=== PATIENT | female | born 1960 | race Caucasian/White ===

== ENCOUNTER → 2016-04-14 | Outpatient (CLI) | payer OTHER ==
[~2016-04-14] MED LIST: ASCO500T16 PO; B-CO1CAP17 PO; Biotin PO; CALCTAB5 PO; FIBER PO; FMR25 PO; GLUC500C4 PO; PRLSR20 PO; SOLI5TAB2 PO; Vitamin D PO; Zinc PO
[2016-04-14 12:33] LABS: ALKALINE PHOSPHATASE 66 U/L (45-117); ALT/SGPT 29 U/L (12-78); AST/SGOT 14 U/L (15-37)
== END | disposition home or self-care (01) ==
LOC: C.LAB1850 10:30
PROVIDERS: ATTEND Internal Medicine Hematology & Oncology
DX: C50.111 Malignant neoplasm of central portion of right female breast (principal); M81.0 Age-related osteoporosis without current pathological fracture

== ENCOUNTER → 2016-04-14 | Outpatient (CLI) | payer OTHER ==
--- NOTE | 2016-04-14 14:07 | MAMMOGRAPHY REPORT ---
UNILATERAL LEFT DIGITAL DIAGNOSTIC MAMMOGRAM TOMOSYNTHESIS WITH CAD AND TARGETED LEFT ULTRASOUND: CLINICAL HISTORY: Six-month follow-up of left breast asymmetry. History of right breast cancer. TECHNIQUE: Breast tomosynthesis in addition to standard 2D mammography was performed. Current study was also evaluated with a Computer Aided Detection (CAD) system. Left CC and MLO and XCCL 2-D and tomosynthesis images were obtained. COMPARISON: Comparison is made to exams dated: 10/10/2015 ultrasound, 10/10/2015 mammogram, 10/07/2015 mammogram, 09/20/2014 mammogram, 09/13/2013 mammogram, and 09/15/2012 mammogram - [facility]. BREAST COMPOSITION: The tissue of the left breast is almost entirely fatty. FINDINGS: Again noted is a focal asymmetry in the left upper outer quadrant measuring approximately 3 cm. The asymmetry is stable compared to the September 2015 exam. An asymmetry is been present in thi s region on all available prior mammograms dating back to 2006, although the asymmetry appears sligh tly more prominent compared to exams prior to 2015. Om the tomosynthesis images, this has the appea renzo of fibroglandular tissue. There is a new oval partially circumscribed and partially obscured 11 mm mass seen within the left breast at approximately 3:00. Additionally, there is a newly visual ized oval circumscribed 7 mm mass seen within the left upper outer quadrant, and a lobulated circums cribed 7 mm mass seen in the left upper inner quadrant. The remainder of the left breast is stable compared to prior exams, without suspicious masses, calcifications, or areas of architectural distor tion noted. Targeted ultrasound was performed of the left breast. In the left breast at 3:00, 3 cm from the nip ple, there is an oval anechoic circumscribed 8 x 9 mm mass. This corresponds with one of the new ma mmographic masses and is consistent with a benign simple cyst. Adjacent to this in the left breast at 3:00, 4 cm from the nipple, there is an oval circumscribed anechoic mass with thin internal septa tions, measuring 10 x 6 mm, consistent with a benign cyst cluster. In the left breast at 1:00, 6 cm from the nipple, there is an oval parallel circumscribed hypoechoic mass which measures 6 x 7 x 3 mm. This likely represents a cyst also does not meet all of the sono graphic criteria for a cyst. In the left breast at 11:00, 3 cm from the nipple, there is a round an echoic circumscribed mass with a thin internal septation, measuring 6 x 5 mm. This corresponds with one of the new mammographic masses and is consistent with a benign cyst. A round circumscribed murali ign simple cyst measuring 2 mm is also seen within the left breast at 11:00, 4 cm from the nipple. A focal area of normal-appearing fibroglandular tissue is seen in the left breast at 2:00, which lik fernanda corresponds with the focal asymmetry. IMPRESSION: ACR BI-RADS CATEGORY 0: INCOMPLETE EVALUATION: NEED ADDITIONAL IMAGING EVALUATION, TAR GETED ULTRASOUND ACR BI-RADS CATEGORY 0: INCOMPLETE EVALUATION: NEED ADDITIONAL IMAGING EVALUATION 1. Focal asymmetry in the left upper outer quadrant is stable compared to the September 2015 exam, but a ppears slightly more prominent compared to exams prior to 2015. While this may represent a normal i sland of fibroglandular tissue, given the history of right breast cancer, recommend bilateral breast MRI for further evaluation. 2. New small benign cysts seen within the left breast. One hypoechoic 7 mm mass in the left breast at 1:00 is probably benign and likely represents a cyst although it does not meet all of the sonogr aphic criteria for a cyst. This can be evaluated at the time of the breast MRI. The patient has been verbally notified of the results. Approximately 10% of breast cancers are not detected with mammography. A negative mammographic repor t should not delay biopsy if a clinically suggestive mass is present. Linda Gomes M.D. ah/:04/14/2016 12:35:02 Information Security Specialist: Alice Dhaliwal, [facility] letter sent: Addl Imaging 0 BI-RADS Code: ACR BI-RADS Category 0: Incomplete Evaluation: Need Additional Imaging Evaluation Ul trasound BI-RADS: ACR BI-RADS Category 0: Incomplete Evaluation: Need Additional Imaging Evaluation
== END | disposition home or self-care (01) ==
LOC: C.MAMM 10:47
PROVIDERS: ATTEND Internal Medicine Hematology & Oncology
DX: C50.111 Malignant neoplasm of central portion of right female breast (principal); M81.0 Age-related osteoporosis without current pathological fracture; N63 Unspecified lump in breast; N60.02 Solitary cyst of left breast; R92.8 Other abnormal and inconclusive findings on diagnostic imaging of breast

== ENCOUNTER → 2016-04-22 | Outpatient (CLI) | payer OTHER ==
[~2016-04-22] MED LIST changes: +GADAVIST IV PRN
--- NOTE | 2016-04-26 13:33 | MAMMOGRAPHY REPORT ---
BREAST MRI OF BOTH BREASTS : 04/22/2016 CLINICAL HISTORY: Focal asymmetry in the left upper outer quadrant seen mammographically, as well as a possible cyst seen within the left breast at 1:00 on ultrasound. History of prior right breast c ancer status post treatment. COMPARISON: Comparison is made to exams dated: 10/10/2015 mammogram, 10/07/2015 mammogram, 09/13/2013 mammogram, 09/20/2014 mammogram, 09/15/2012 mammogram, and 09/09/2011 mammogram - . Technique: The patient was placed prone in a dedicated breast imaging coil. Precontrast axial T1-we ighted, axial T2-weighted fat saturation, and axial T1-weighted fat saturation images were obtained. After the administration of Gadavist IV contrast, sequential T1-weighted fat saturation images wer e obtained. Subtraction images were obtained of the dynamic contrast enhanced sequences, and 3-D re formations were performed. The Udex software was used for kinetic analysis. Findings: Right breast: There is minimal background parenchymal enhancement. There are expected postsurgical changes in the right central breast from prior lumpectomy. There is a round circumscribed 7 mm subd ermal mass in the right 3:00 breast, which demonstrates T2 hyperintensity and no enhancement, and is benign and likely represents an epidermal inclusion/sebaceous cyst (series 501 image 63). There ar e no suspicious enhancing masses or areas of abnormal enhancement within the right breast. Left breast: There is mild background parenchymal enhancement. There is a focal area of enhancing t issue within the left upper outer quadrant posteriorly, which measures 1.7 x 2.3 cm (series 59027 im age 59). The area demonstrates a persistent kinetic pattern. This corresponds with the focal asymm etry seen mammographically. Given the increased prominence of the asymmetry mammographically and gi aleksey the corresponding enhancement on MRI, the asymmetry is indeterminant and ultrasound-guided core needle biopsy is recommended for further evaluation, although this may represent normal fibroglandul ar tissue. A few small circumscribed T2 hyperintense, nonenhancing masses are seen scattered within the left breast, consistent with cysts. The largest cyst measures 8 mm in the left central breast. One oval 5 mm T2 hyperintense, nonenhancing mass within the enhancing tissue in the left upper out er quadrant at approximately 1:00 corresponds with the hypoechoic mass seen on ultrasound and is murali ign and consistent with a cyst (series 4 image 31). The remainder of the left breast is negative, w ithout suspicious masses or areas of abnormal enhancement present. There is no evidence of axillary adenopathy. The chest wall structures are negative. An oval circu mscribed T2 hyperintense, nonenhancing mass is seen within the anterior aspect of the liver, consist ent with a hepatic cyst (series 4 image 46). IMPRESSION: ACR BI-RADS CATEGORY 4A: LOW SUSPICION FOR MALIGNANCY 1. Focal 2.3 cm area of enhancing tissue within the left upper outer quadrant, corresponding with t he mammographic focal asymmetry. Although this may represent normal fibroglandular tissue, given th e increased prominence mammographically and given the corresponding enhancement on MRI, the asymmetr y is indeterminant. Recommend ultrasound-guided core needle biopsy for further evaluation. 2. Small benign cysts scattered within the left breast. The hypoechoic mass in left breast at 1:00 described on the prior ultrasound report is shown to represent a benign cyst on MRI. A phone call was made to the physician's office to confirm faxed results were received. Linda Gomes M.D. ah/:04/24/2016 18:02:54 Senior Statistician: nba player, letter sent: Abnormal 4/5 BI-RADS Code: ACR BI-RADS Category 4A: Low Suspicion For Malignancy
== END | disposition home or self-care (01) ==
LOC: C.MRI 13:06
PROVIDERS: ATTEND Internal Medicine Hematology & Oncology
DX: R92.8 Other abnormal and inconclusive findings on diagnostic imaging of breast (principal); N60.02 Solitary cyst of left breast

== ENCOUNTER → 2016-05-12 | Outpatient (CLI) | payer OTHER ==
[~2016-05-12] MED LIST changes: -GADAVIST IV PRN
--- NOTE | 2016-05-12 10:08 | Discharge Instructions ---
Discharge Instructions Procedure Procedure Date: May 12, 2016. Reason for visit: Left Enhancing Tissue/2ND Look Us/Pos Bx. Discharge Discharge Date: May 12, 2016. Discharge Diagnosis: status post breast biopsy Instructions Activity Recommendations: Additional Limitations (see below) Return to School/Work: no limitations Recommended Home Diet: No Limitations Provider Instructions: ACTIVITY RECOMMENDATIONS: * No lifting, pushing, pulling or exercising the affected side for three days. RETURN TO SCHOOL/WORK: * You may return to work/school after the procedure, but do not perform any strenuous activities for 24 to 48 hours. MEDICATIONS: * Tylenol (two 325 mg) every four to six hours if needed for mild pain (if not allergic to Tylenol). DIET: * Resume previous diet. SPECIAL CARE INSTRUCTIONS: * Keep biopsy site dry for 24 hours. May shower after 24 hours, but do not soak (bathe) incision. * May remove Tegaderm (plastic patch) tomorrow AFTER showering. * Leave the steri-strips on for one week. Allow the steri-strips to fall off by themselves. If not off after one week, you may remove them. You may place a Bandaid crosswise over the strips, if desired. * Apply ice 10 minutes on and 10 minutes off as needed. * Wear a bra at bedtime to sleep more comfortably for 2-3 days. * Your referring physician should have the results after approximately 5 to 7 business days. * Call for unusual bleeding, fever, drainage, etc or if you have any questions call during normal business hours or after hours call Dr Gomes, [phone]. FOLLOW UP VISIT: Follow-up with Referring Physician as scheduled. Allergies Coded Allergies: Naproxen (Unverified Allergy, Mild, HIVES, 05/06/12) Sulfa Drugs (Unverified Allergy, Mild, MOUTH SORES, 05/06/12) Latha Nails Recommendations: Call your doctor if: * Temperature above 101 degrees * Pain not relieved by pain medicine ordered * There is increased drainage or redness from any incision * You have any unanswered questions or concerns. Your Doctors Instructions noted above were prepared by provider Linda Gomes. Patient Signature Section: Patient Instructions Signature Page Katarina Ch Patient (or Guardian) Signature/Date: I have read and understand the instructions given to me by my caregivers. Caregiver/RN/Doctor Signature/Date: The above-named patient and/or guardian has received patient instructions on this date. + Original Patient Signature Page (only) stays with chart. Please make copy for patient.
--- NOTE | 2016-05-12 13:33 | MAMMOGRAPHY REPORT ---
ULTRASOUND GUIDED BIOPSY LEFT BREAST: 05/12/2016 CLINICAL HISTORY: Hyperechoic tissue in the left 1:00 breast, which correlates with the increasing f ocal asymmetry. PATIENT CONSENT: The procedure, risks and benefits were discussed with the patient and informed writ ten consent was obtained. A timeout was performed immediately prior to the procedure. PROCEDURE DESCRIPTION: With ultrasound guidance, aseptic technique, and lidocaine as the local anest hetic (1% lidocaine to anesthetize the skin and 1% lidocaine with epinephrine to anesthetize the flaco per tissues), the hyperechoic tissue in the left 1 to 2:00 breast was sampled 3 times with a 14-gaug e Achieve biopsy needle. Immediately thereafter, with ultrasound guidance, aseptic technique, and l idocaine as the local anesthetic, a metallic localizer clip was placed at the biopsy site. Direct p ressure was applied to the site immediately post procedure and hemostasis was achieved. Postprocedu re unilateral mammograms were performed to confirm placement of the clip in the expected location of the biopsied tissue; see the separate dictation for details. The patient tolerated the procedure w ithout complication. She was given wound care instructions. The specimens were sent to pathology fo r analysis. COMPARISON: Comparison is made to exams dated: 04/22/2016 breast MRI, 04/14/2016 mammogram, 10/10/2015 mammogram, 04/14/2016 ultrasound, 09/20/2014 mammogram, and 09/13/2013 mammogram - [facility]. IMPRESSION: ULTRASOUND GUIDED BIOPSY Ultrasound-guided core needle biopsy of the hyperechoic tissue in the left 1 to 2:00 breast, which c orrelates with the mammographic focal asymmetry and the enhancing tissue on MRI. A marker clip was placed. The patient will receive pathology results from her ordering provider. Linda Gomes M.D. ah/:05/12/2016 10:14:47 Histology Assistant: Cydney SALINAS(R)(Irvin), [facility]
--- NOTE | 2016-05-12 13:36 | MAMMOGRAPHY REPORT ---
UNILATERAL LEFT DIGITAL DIAGNOSTIC MAMMOGRAM: 05/12/2016 CLINICAL HISTORY: Status post ultrasound-guided biopsy of the hyperechoic tissue in the left 1 to 2: 00 breast. TECHNIQUE: Postprocedural left CC and ML views were obtained. COMPARISON: Comparison is made to exams dated: 04/22/2016 breast MRI, 04/14/2016 mammogram, 10/10/2015 mammogram, and 10/07/2015 mammogram - [facility]. BREAST COMPOSITION: The tissue of the left breast is almost entirely fatty. FINDINGS: A new biopsy marker clip is seen at the site of the biopsied hyperechoic tissue in the le ft 1 to 2:00 breast. The biopsy clip is located in the region of the mammographic focal asymmetry, indicating good correlation between the biopsied sonographic finding and the mammographic asymmetry as well as the enhancing tissue on MRI. No significant postbiopsy hematoma is seen. IMPRESSION: POST PROCEDURE IMAGING FOR MARKER PLACEMENT New biopsy marker clip status post left breast ultrasound-guided biopsy. Pathology results are pend ing. Pending benign pathology results, the patient can return to her annual screening mammogram [facility] September 2016. Approximately 10% of breast cancers are not detected with mammography. A negative mammographic repor t should not delay biopsy if a clinically suggestive mass is present. Linda Gomes M.D. ah/:05/12/2016 10:16:55 Business Editor: Cydney MAYES)(Irvin), [facility] BI-RADS Code: Post Procedure Imaging For Marker Placement
== END | disposition home or self-care (01) ==
LOC: C.MAMM 09:25
PROVIDERS: ATTEND Surgery
DX: R92.8 Other abnormal and inconclusive findings on diagnostic imaging of breast (principal)

== ENCOUNTER → 2016-10-11 | Outpatient (CLI) | payer OTHER ==
[2016-10-11 12:46] LABS: ALKALINE PHOSPHATASE 64 U/L (45-117); ALT/SGPT 38 U/L (12-78); AST/SGOT 22 U/L (15-37)
== END | disposition home or self-care (01) ==
LOC: C.LAB1850 10:43
PROVIDERS: ATTEND Internal Medicine Hematology & Oncology
DX: Z85.3 Personal history of malignant neoplasm of breast (principal); R92.8 Other abnormal and inconclusive findings on diagnostic imaging of breast; M81.0 Age-related osteoporosis without current pathological fracture

== ENCOUNTER → 2016-10-11 | Outpatient (CLI) | payer OTHER ==
--- NOTE | 2016-10-11 14:31 | MAMMOGRAPHY REPORT ---
BILATERAL DIGITAL DIAGNOSTIC MAMMOGRAM TOMOSYNTHESIS WITH CAD: 10/11/2016 CLINICAL HISTORY: History of right breast cancer status post lumpectomy. History of benign ultrasoun d-guided biopsy of the left breast April 2016 which yielded benign pathology. The patient reports no current complaints. TECHNIQUE: Breast tomosynthesis in addition to standard 2D mammography was performed. Current study was also evaluated with a Computer Aided Detection (CAD) system. Bilateral CC and MLO 2-D and tomosy nthesis images were obtained. COMPARISON: Comparison is made to exams dated: 04/14/2016 ultrasound, 04/14/2016 mammogram, 10/10/2015 mammogram, 10/07/2015 mammogram, 09/20/2014 mammogram, and 09/13/2013 mammogram - [facility]. BREAST COMPOSITION: There are scattered areas of fibroglandular density in both breasts. FINDINGS: There are no suspicious masses, calcifications, or areas of architectural distortion noted in either breast. There has been no significant interval change compared to prior exams. There are stable post surgical changes in the right central breast from prior lumpectomy, including density, a rchitectural distortion, surgical clips, and benign-appearing calcifications at the lumpectomy bed. Focal asymmetry in the left upper outer quadrant is not significantly changed, with a biopsy marker c lip seen at the anterior aspect of the asymmetry. This was recently biopsied and yielded benign path ology. Scattered circumscribed benign-appearing left breast masses are stable, with corresponding be nign cysts seen on the prior MRI. Circumscribed benign-appearing mass in the right medial breast is stable; this was previously marked with a skin marker and likely represents a sebaceous/epidermal inc lusion cyst. IMPRESSION: ACR BI-RADS CATEGORY 2: BENIGN There is no mammographic evidence of malignancy in either breast. A 1 year screening mammogram is rec ommended. The patient has been verbally notified of the results. Approximately 10% of breast cancers are not detected with mammography. A negative mammographic report should not delay biopsy if a clinically suggestive mass is present. Linda Gomes M.D. /:10/11/2016 11:33:31 Water Filter Cleaner: Alisia SALINAS(Markus)(Irvin), [facility] letter sent: Normal 1/2 BI-RADS Code: ACR BI-RADS Category 2: Benign
== END | disposition home or self-care (01) ==
LOC: C.MAMM 10:58
PROVIDERS: ATTEND Internal Medicine Hematology & Oncology
DX: Z08 Encounter for follow-up examination after completed treatment for malignant neoplasm (principal); Z85.3 Personal history of malignant neoplasm of breast

== ENCOUNTER → 2017-10-12 | Outpatient (CLI) | payer OTHER ==
--- NOTE | 2017-10-12 11:46 | DIAGNOSTIC IMAGING REPORT ---
PELVIC COMPLETE NON OB CLINICAL HISTORY: POST MENOPAUSAL BLEEDING COMPARISON STUDY: None FINDINGS: The uterus measured 5.9 cm maximum dimension. The endometrial stripe measured 1.1 cm. This is abnormally increased for age.. The right ovary measured 2.1 cm maximum dimension with normal vascular flow. The left ovary measured 3.2 cm maximum dimension with normal vascular flow. There is no ultrasonographic evidence of ovarian torsion. It should be noted that ovarian torsion can be present with normal Doppler ultrasonographic findings. There was no evidence of pathologic free pelvic fluid. IMPRESSION: 1. Abnormal endometrial thickening at 11 mm. 2. Differential considerations include endometrial hyperplasia versus neoplasia. 3. Remainder the study is unremarkable. The above report was generated using voice recognition software. It may contain grammatical, syntax or spelling errors. Electronically signed by: Anderson Dalton M.D. 10/12/2017 10:44 AM Dictated Date/Time: 10/12/2017 10:42 AM
== END | disposition home or self-care (01) ==
LOC: C.ULTR 09:17
PROVIDERS: ATTEND Family Medicine
DX: N95.0 Postmenopausal bleeding (principal)

== ENCOUNTER → 2017-10-12 | Outpatient (CLI) | payer OTHER ==
--- NOTE | 2017-10-13 07:54 | MAMMOGRAPHY REPORT ---
BILATERAL DIGITAL SCREENING MAMMOGRAM TOMOSYNTHESIS WITH CAD: 10/12/2017 CLINICAL HISTORY: Asymptomatic. Personal history of breast cancer. TECHNIQUE: The study was acquired using full field digital technology and interpreted from soft copy. Breast tomosynthesis in addition to standard 2D mammography was performed. Current study was also ev aluated with a Computer Aided Detection (CAD) system. COMPARISON: Comparison is made to exams dated: 10/11/2016 mammogram, 05/12/2016 mammogram, 04/14/2016 m ammogram, 10/10/2015 mammogram, 10/07/2015 mammogram, and 09/20/2014 mammogram - [facility]. BREAST COMPOSITION: There are scattered areas of fibroglandular density in both breasts. FINDINGS: There is global increasing asymmetry of the left breast when comparing to more remote prior mammograms, involving a focal asymmetry in the left upper outer quadrant posteriorly which was previ ously biopsied and yielded benign pathology results, and also a focal asymmetry in the subareolar lef t breast. These changes could be due to hormone replacement therapy but that history is unknown. Th erefore correlation with clinical history is needed. If the patient is not on hormone replacement th erapy, would recommend additional targeted left breast ultrasound. There is expected architectural distortion and surgical clips in the right central breast at the site of prior lumpectomy. No suspicious right breast masses, asymmetries, areas of architectural distort ion or calcifications are identified. There is a stable benign dermal lesion projecting over the med ial right breast. IMPRESSION: ACR BI-RADS CATEGORY 0: INCOMPLETE EVALUATION: NEED ADDITIONAL IMAGING EVALUATION 1. Global increasing asymmetry of the left breast could be due to hormone replacement therapy. Howev er, the clinical history is currently unknown and will request further records. If the patient is no t on hormone replacement therapy, additional left breast ultrasound may be needed. 2. Stable posttreatment changes in the right breast, without mammographic evidence of malignancy. The patient will be called to schedule an appointment. Some breast cancers are not detected with mammography. A negative mammographic report should not gayle y biopsy if a clinically suggestive mass is present. Aurora Tsai M.D. ay/:10/12/2017 17:13:25 Business Liaison Officer: RT Monica(Markus)(M), [facility] letter sent: Addl Imaging 0 BI-RADS Code: ACR BI-RADS Category 0: Incomplete Evaluation: Need Additional Imaging Evaluation
== END | disposition home or self-care (01) ==
LOC: C.MAMM 10:15
PROVIDERS: ATTEND Internal Medicine Hematology & Oncology
DX: Z12.31 Encounter for screening mammogram for malignant neoplasm of breast (principal); Z85.3 Personal history of malignant neoplasm of breast

== ENCOUNTER → 2017-10-19 | Outpatient (CLI) | payer OTHER ==
[~2017-10-19] MED LIST changes: -B-CO1CAP17 PO; +B-COCAP2 PO
--- NOTE | 2017-10-19 14:57 | MAMMOGRAPHY REPORT ---
ULTRASOUND OF LEFT BREAST: 10/19/2017 CLINICAL HISTORY: 57-year-old woman with a personal history of right breast cancer status post breast conservation therapy was recently called back from screening mammography for global increasing asymm etry of the left breast. Last year, she underwent breast MRI and ultrasound-guided biopsy of the most prominent focal asymmetry in the upper outer posterior left breast, which yielded benign pathology r esults. COMPARISON: Comparison is made to exams dated: 10/12/2017 mammogram, 10/11/2016 mammogram, 04/14/2016 m ammogram, 04/14/2016 ultrasound, 10/10/2015 mammogram, and 10/07/2015 mammogram - [facility]. FINDINGS: Targeted ultrasound was performed throughout the lateral left breast, in the area of most p rominent increasing asymmetries seen mammographically. An island of dense glandular tissue with inte rnal anechoic cyst is again noted in the 2:00 left breast. There are other cysts and cyst clusters t hroughout the left breast, most prominent in the 12:00 to 1:00 periareolar region. Another cyst clus ter is seen in the 3:30 left breast. There are round circumscribed hypoechoic subcentimeter masses a djacent to the cyst clusters in the 3:30 and 12:00 axes of the left breast which most likely represen t complicated cysts. There are numerous cysts and cyst clusters identified likely explain the mammog raphic asymmetries and are probably benign. However, a short interval follow-up left diagnostic pinky synthesis mammogram and repeat targeted ultrasound is recommended to ensure stability in 6 months. IMPRESSION: ACR-BI-RADS CATEGORY 3: PROBABLY BENIGN 1. The increasing asymmetries/global asymmetry of the left breast is likely due to a combination of normal fiber glandular tissue and cysts and cyst clusters, compatible with fibrocystic change. Howev er, a short interval follow-up right diagnostic tomosynthesis mammogram and repeat ultrasound with pa rticular attention to the 12:00 and 3:30 axes is recommended to ensure stability in 6 months. These results and recommendations were discussed with the patient at the time of the exam. Aurora Tsai M.D. ay/:10/19/2017 11:54:35 Survey Interviewer: Alisia Vega RT(R)(M), [facility] letter sent: Follow Up Recommended 3 BI-RADS Code: ACR-BI-RADS Category 3: Probably Benign
--- NOTE | 2017-11-04 12:28 | CODING QUERY NO DIAGNOSIS ---
TREATMENT RENDERED WITHOUT A DIAGNOSIS To promote full compliance with coding requirements relating to patient care, physician participation is requested in all cases of medical coder uncertainty. Please assist us with providing a diagnosis/symptom for the test(s) below: A diagnosis/symptom was not documented on your Order. A valid diagnosis/symptom is required to bill all insurances. Please remember that we are unable to code a diagnosis of rule out, probable, possible, questionable, or suspected. Tests that require a diagnosis: DOS: 10/19/17 * ULTRASOUND BREAST LIMITED DIAGNOSIS: Provider Signature: Date: Thank you Tricia Vásquez [employer] Once completed, please kindly fax back to [phone] For questions please call [phone]
== END | disposition home or self-care (01) ==
LOC: C.MAMM 11:13
PROVIDERS: ATTEND Internal Medicine Hematology & Oncology
DX: C50.511 Malignant neoplasm of lower-outer quadrant of right female breast (principal); M81.0 Age-related osteoporosis without current pathological fracture; N64.89 Other specified disorders of breast

== ENCOUNTER → 2017-11-02 | Outpatient (CLI) | payer OTHER | END | disposition home or self-care (01) | LOC: C.PATHSPEC 17:55 | PROVIDERS: ATTEND Obstetrics & Gynecology | DX: N85.8 Other specified noninflammatory disorders of uterus (principal); R93.8 Abnormal findings on diagnostic imaging of other specified body structures; N95.0 Postmenopausal bleeding ==

== ENCOUNTER → 2017-11-02 | Outpatient (CLI) | payer OTHER | END | disposition home or self-care (01) | LOC: C.PAPS 18:13 | PROVIDERS: ATTEND Obstetrics & Gynecology | DX: R93.8 Abnormal findings on diagnostic imaging of other specified body structures (principal); N95.0 Postmenopausal bleeding ==

== ENCOUNTER 2017-11-11 18:12 | Emergency (ER) | payer OTHER ==
[~2017-11-11] VITALS: Ht 172.7 cm; Wt 88.8 kg
[2017-11-11 18:28] VITALS: TEMP 37.4; Ht 172.7 cm; Wt 88.8 kg
[2017-11-11] MEDS ORDERED: ACETAMINOPHEN 500 MG TAB PO STA (18:57)
--- NOTE | 2017-11-11 19:34 | DIAGNOSTIC IMAGING REPORT ---
R SHOULDER MIN 2 VIEWS ROUTINE HISTORY: 57 years-old Female right shoulder pain, fall acute posttraumatic right shoulder pain status post fall COMPARISON: None available TECHNIQUE: 3 views of the right shoulder FINDINGS: Mild degenerative changes of the glenohumeral and AC joints. Bones appear mildly demineralized. No acute fracture or dislocation identified. IMPRESSION: No acute fracture or dislocation. The above report was generated using voice recognition software. It may contain grammatical, syntax or spelling errors. Electronically signed by: Stephan Gregory M.D. 11/11/2017 7:33 PM Dictated Date/Time: 11/11/2017 7:31 PM
--- NOTE | 2017-11-11 19:35 | DIAGNOSTIC IMAGING REPORT ---
L FINGER(S) MIN 2 VIEWS ROUTINE HISTORY: 57 years-old Female left index finger pain, fall acute left second finger pain status post fall COMPARISON: None available TECHNIQUE: 3 views of the left second finger FINDINGS: There is acute nondisplaced intra-articular fracture involving the lateral proximal aspect of the second distal phalanx. Mild associated soft tissue swelling. No acute dislocation or additional fracture identified. Mild degenerative changes throughout the interphalangeal joints. IMPRESSION: Acute nondisplaced intra-articular fracture of the second distal phalanx. The above report was generated using voice recognition software. It may contain grammatical, syntax or spelling errors. Electronically signed by: Stephan Gregory M.D. 11/11/2017 7:34 PM Dictated Date/Time: 11/11/2017 7:33 PM
--- NOTE | 2017-11-11 19:59 | EMERGENCY ROOM VISIT NOTE ---
ED Visit Note First contact with patient: 18:46 CHIEF COMPLAINT: Right shoulder pain, left index finger pain HISTORY OF PRESENT ILLNESS: This [id number] 57-year-old female patient presents to the emergency department, ambulatory, complaining of pain in the right shoulder and left index finger after a fall. The patient states she was getting onto the lawnmower when the handle got caught on her shorts. She states she then stepped off of them hour, but did not realize her pants were caught, causing her to fall. The patient states she landed directly on her right shoulder, but is uncertain what she may have struck her index finger on. She does report decreased range of motion, but states the pain and swelling in the finger has improved. She does report some bruising of the distal aspect of the left index finger. There is no limitation of motion of the right arm, but the patient feels that she is using the arm more than she should, which does cause increased discomfort. The pain is moderate, constant and increases with motion of the hand and arm. The patient states the pain is sharp and 4/10. The patient has taken no medications for relief of the pain. No previous significant previous shoulder disease or injury. No numbness or tingling. No neck or back pain. No chest pain or shortness of breath. No abdominal pain or nausea/vomiting. No cough. REVIEW OF SYSTEMS: A 6 system review of systems was performed with positives and pertinent negatives in the HPI. ALLERGIES: Naprosyn, sulfa MEDICATIONS: None PMH: None SOCIAL HISTORY: The patient lives locally with family. She denies drug, alcohol , tobacco use. PHYSICAL EXAM: Vital Signs: Reviewed nurse's notes, vital signs stable. GENERAL : This is a 57-year-old white female, in no acute distress, but appears to be in pain, well-developed, well-nourished. MUSCULOSKELETAL: There is ecchymosis and edema of the distal aspect of the left index finger, but no obvious deformity. There is tenderness to palpation of the DIP joint. there is no deformity in the contour of the right shoulder and there are no perez deformities noted. There is no sulcus sign. There is tenderness over the posterior aspect of the glenohumeral joint. The patient's range of motion is full. Supraspinatus strength 5/5. There is no clavicle tenderness. No tenderness of the humerus, elbow, wrist, or hand. Milled Rubber Tender strength 5/5. Radial pulse 2+. NECK: No tenderness to palpation over the cervical spine. Supple, no lymphadenopathy. HEART: Regular rate and rhythm without murmurs gallops or rubs. LUNGS: Clear to auscultation bilaterally without wheezes, rales or rhonchi. No accessory muscle use. No retractions. NEURO: The patient is alert and oriented to person, place, and time. Normal sensation to light and sharp touch. Capillary refill less than 2 seconds. RADIOLOGY: L FINGER(S) MIN 2 VIEWS ROUTINE HISTORY: 57 years-old Female left index finger pain, fall acute left second finger pain status post fall COMPARISON: None available TECHNIQUE: 3 views of the left second finger FINDINGS: There is acute nondisplaced intra-articular fracture involving the lateral proximal aspect of the second distal phalanx. Mild associated soft tissue swelling. No acute dislocation or additional fracture identified. Mild degenerative changes throughout the interphalangeal joints. IMPRESSION: Acute nondisplaced intra-articular fracture of the second distal phalanx. The above report was generated using voice recognition software. It may contain grammatical, syntax or spelling errors. Electronically signed by: Stephan Gregory M.D. 11/11/2017 7:34 PM Dictated Date/Time: 11/11/2017 7:33 PM R SHOULDER MIN 2 VIEWS ROUTINE HISTORY: 57 years-old Female right shoulder pain, fall acute posttraumatic right shoulder pain status post fall COMPARISON: None available TECHNIQUE: 3 views of the right shoulder FINDINGS: Mild degenerative changes of the glenohumeral and AC joints. Bones appear mildly demineralized. No acute fracture or dislocation identified. IMPRESSION: No acute fracture or dislocation. The above report was generated using voice recognition software. It may contain grammatical, syntax or spelling errors. Electronically signed by: Stephan Gregory M.D. 11/11/2017 7:33 PM Dictated Date/Time: 11/11/2017 7:31 PM EMERGENCY DEPARTMENT COURSE: I examined the patient. The patient was given Tylenol for pain. An X-ray of the right shoulder and left index finger was reviewed by myself and radiologist as above. The patient was placed in a metal finger splint and arm sling. She was offered stronger analgesics and declines. The patient was encouraged to follow-up closely outpatient with orthopedics. Discharge instructions reviewed, patient was discharged home in good condition. I attest that I have personally reviewed the patient's current medication list. Patient was found to have normal blood pressure on screening and does not require follow-up. Etiologies such as soft tissue injury, fracture, dislocation, neurovascular compromise, compartment syndrome, as well as others were entertained. DIAGNOSIS: Right shoulder contusion, left index finger pain The chart was completed utilizing i[employer] voice recognition software. Grammatical errors, random word insertions, pronoun errors, and incomplete sentences are an occasional consequence of this system due to software limitations, ambient noise, and hardware issues. Any formal questions or concerns about the content, text, or information contained within the body of this dictation should be directly addressed to the provider for clarification. Problem List Medical Problems: (1) Appendectomy Status: Resolved (2) breast cancer Status: Chronic (3) History of bilateral mastectomy Status: Resolved (4) kidney stones Status: Chronic (5) right lower back pain Status: Chronic (6) UTI Status: Chronic Current/Historical Medications Scheduled Ascorbic Acid (Ascorbic Acid), 500 MG PO DAILY Calcium (Caltrate), 600 MG PO BID Glucosamine Sulfate (Glucosamine), 500 MG PO DAILY Letrozole (Femara *), 2.5 MG PO DAILY Omeprazole (Prilosec), 20 MG PO DAILY Solifenacin Succinate (Vesicare), 5 MG PO DAILY Vitamin B Cmplx/Vitc/Folic Ac (Nephrocaps), 1 CAP PO DAILY [Biotin], 1 TABLET PO DAILY [Fiber Cap], 2 CAPSULES PO DAILY [Vitamin D], 1 CAP PO DAILY [Zinc], 1 TABLET PO DAILY Allergies Coded Allergies: Naproxen (Unverified Allergy, Mild, HIVES, 05/06/12) Sulfa Drugs (Unverified Allergy, Mild, MOUTH SORES, 05/06/12) Vital Signs Date Time Temp Pulse Resp B/P (MAP) Pulse Ox O2 Delivery O2 Flow Rate FiO2 11/11/17 18:28 37.4 92 18 115/79 99 Room Air Medications Administered Medications (Trade) Dose Ordered Sig/Ashia Route Start Time Stop Time Status Last Admin Dose Admin Acetaminophen (Tylenol Tab) 1,000 mg NOW STAT PO 11/11/17 18:57 11/11/17 19:00 DC 11/11/17 19:05 1,000 MG Departure Information Impression Primary Impression: Contusion of right shoulder Additional Impression: Fracture of phalanx of left index finger Dispostion Home / Self-Care Condition GOOD Referrals Phani Reynoso M.D. (PCP) Galo Zhang D.O. Forms HOME CARE DOCUMENTATION FORM, IMPORTANT VISIT INFORMATION Patient Instructions ED Contusion Shoulder, ED Fx Finger Closed, My [facility] Additional Instructions You were seen in the emergency department today for right shoulder contusion and left index finger fracture. Ibuprofen(Motrin, Advil) may be used for fever or pain. Use 600mg every six hours as needed. Take with food. Avoid using more than 2400mg in a 24 hour period. Do not use 2400mg per day for more than three consecutive days without physician direction. Prolonged inappropriate use can lead to stomach upset or ulcers. (AND/OR) Acetaminophen(Tylenol) may be used for fever or pain. Use 1000mg every six hours as needed. Avoid using more than 3000mg in a 24 hour period. *Alternate these medications every 3-4 hours for increased pain control. Ice compresses for 20 minutes at a time four times daily for 2-3 days. Use the sling as needed for discomfort. Remove your arm from the sling 4-6 times a day and move all the joints around to keep them loose. Rest and elevate your injury. Do not get the splint wet. If your splint feels excessively tight, you have worsening pain, develop numbness or tingling, or your digits appear blue, loosen the wrap. Then reapply the wrap gently without removing the splint. If your symptoms are not quickly relieved return to the ER for re-evaluation. Return to the ER immediately for any numbness, tingling, severe pain, extreme swelling in the extremity or as needed. Call [facility], [phone], on Tuesday to arrange follow up for your injury. Problem Qualifiers Primary Impression: Contusion of right shoulder Encounter type: initial encounter Qualified Codes: S40.011A - Contusion of right shoulder, initial encounter Additional Impression: Fracture of phalanx of left index finger Encounter type: initial encounter Fracture type: closed Phalanx: distal Fracture alignment: nondisplaced Qualified Codes: S62.661A - Nondisplaced fracture of distal phalanx of left index finger, initial encounter for closed fracture
[2017-11-11 20:17] VITALS: BP 118/81; PULSE 88; O2SAT 98
== END 2017-11-11 20:13 | disposition home or self-care (01) ==
LOC: C.EDB 18:13 → C.EDD 20:13
DX: S62.661A Nondisplaced fracture of distal phalanx of left index finger, initial encounter for closed fracture (principal); S40.011A Contusion of right shoulder, initial encounter; W28.XXXA Contact with powered lawn mower, initial encounter; Y93.H9 Activity, other involving exterior property and land maintenance, building and construction; Z88.6 Allergy status to analgesic agent; Z88.2 Allergy status to sulfonamides; Z85.3 Personal history of malignant neoplasm of breast; Z90.13 Acquired absence of bilateral breasts and nipples; Z87.442 Personal history of urinary calculi; M54.5 Low back pain; G89.29 Other chronic pain; Z87.440 Personal history of urinary (tract) infections; Z79.899 Other long term (current) drug therapy